=== PATIENT | female | born 1940 | race Caucasian/White ===

== ENCOUNTER → 2020-02-20 11:04 | Outpatient (CLI) | payer OTHER, SELFPAY ==
--- NOTE | ~2020-02-20 | MM_ITS ---
EXAMINATION: MM scrn allyson implant BI w nestor HISTORY: Screening mammogram, family history of breast cancer in her sister. TECHNIQUE: Craniocaudal and mediolateral oblique 3-D tomosynthesis images with implant displacement a nd synthetic 2-D images were generated. Craniocaudal and mediolateral oblique views of the breasts wi thout implant displacement were obtained using full field digital mammography. CAD analysis was submi tted and interpreted. COMPARISON: 08/31/2017, 08/12/1716, 07/21/2015 BREAST PARENCHYMAL COMPOSITION: The breasts are almost entirely fatty. FINDINGS: There is no evidence of suspicious mass, calcification, or architectural distortion to sugg est malignancy in either breast. There has been no suspicious interval change. IMPRESSION: 1. No mammographic evidence of malignancy. 2. Recommend routine screening mammography in one year. BI-RADS Category 1: Negative Reviewed, dictated and finalized at location B.
== END ==
PROVIDERS: PCP Student in an Organized Health Care Education/Training Program; Visit Provider Student in an Organized Health Care Education/Training Program
DX: Z12.31 Encounter for screening mammogram for malignant neoplasm of breast (principal)
CPT/HCPCS: 77063; 77067

== ENCOUNTER → 2020-05-20 08:06 | Outpatient (CLI) | payer OTHER, SELFPAY ==
--- NOTE | ~2020-05-20 | CT_ITS ---
EXAMINATION:CT chest wo con DATE: 05/20/2020 08:55 INDICATION: Chronic cough. Syndrome of inappropriate antidiuretic hormone. TECHNIQUE: Computed tomography (CT) of the chest was performed without intravenous contrast. Automate d exposure control and iterative reconstruction technique were employed. The dose-length product (DLP ) was 153.81 mGy-cm. COMPARISON: None. FINDINGS: There is mild atelectasis bilaterally. There is a 3 mm nodule in right upper lobe, likely b enign. There are trace pleural effusions. Cardiomegaly is noted. There are coronary artery calcificat ions. No pericardial effusion. There are bilateral breast implants. There is thoracic dextrocurvature and moderate spondylosis. There is a hemangioma in T4 vertebral body. IMPRESSION: 1. Cardiomegaly. Reviewed, dictated and finalized at location A. IMPRESSION: 1. Cardiomegaly.
--- NOTE | ~2020-05-20 | CT_ITS ---
EXAMINATION: CT soft tissue neck w con DATE: 05/20/2020 08:56 INDICATION: Syndrome of inappropriate diuretic hormone. Hyperparathyroidism. TECHNIQUE: Computed tomography (CT) of the neck was performed with 75 mL Omnipaque-350 intravenous co ntrast. Automated exposure control and iterative reconstruction technique were employed. The dose-trina gth product was 375.03 mGy-cm. COMPARISON: None FINDINGS: There are likely changes of ocular lens replacement surgeries. There are no pathologically enlarged lymph nodes. There is a 10 x 5 x 4 mm hyperenhancing mass posterior to inferior left thyroid lobe. A chin implant is noted. There is severe cervical spondylosis. IMPRESSION: 1. 10 mm hyperenhancing mass posterior to inferior left thyroid lobe, consistent with a parathyroid a denoma. Reviewed, dictated and finalized at location A. IMPRESSION: 1. 10 mm hyperenhancing mass posterior to inferior left thyroid lobe, consisten t with a parathyroid adenoma.
[2020-05-20 08:41] LABS: Estimated Glomerular Filt Rate > 60
== END ==
PROVIDERS: Visit Provider Student in an Organized Health Care Education/Training Program
DX: E22.2 Syndrome of inappropriate secretion of antidiuretic hormone (principal); E83.52 Hypercalcemia; R05 Cough; E21.3 Hyperparathyroidism, unspecified; I51.7 Cardiomegaly; E07.89 Other specified disorders of thyroid
CPT/HCPCS: 70491; 71250; Q9967

== ENCOUNTER → 2021-02-22 10:35 | Outpatient (CLI) | payer OTHER, SELFPAY ==
--- NOTE | ~2021-02-22 | MM_ITS ---
EXAMINATION: MM scrn allyson implant BI w nestor HISTORY: Screening mammogram TECHNIQUE: Craniocaudal and mediolateral oblique 3-D tomosynthesis images with implant displacement a nd synthetic 2-D images were generated. Craniocaudal and mediolateral oblique views of the breasts wi thout implant displacement were obtained using full field digital mammography. CAD analysis was submi tted and interpreted. COMPARISON: Comparison to multiple prior studies sequentially, with oldest reviewed study dated 06/24. BREAST PARENCHYMAL COMPOSITION: There are scattered areas of fibroglandular density. FINDINGS: There is no evidence of suspicious mass, calcification, or architectural distortion to sugg est malignancy in either breast. There has been no suspicious interval change. IMPRESSION: 1. No mammographic evidence of malignancy. 2. Recommend routine screening mammography in one year. BI-RADS Category 1: Negative Reviewed, dictated and finalized at location A.
== END ==
PROVIDERS: PCP Student in an Organized Health Care Education/Training Program; Visit Provider Student in an Organized Health Care Education/Training Program
DX: Z12.31 Encounter for screening mammogram for malignant neoplasm of breast (principal)
CPT/HCPCS: 77063; 77067

== ENCOUNTER → 2021-09-23 11:16 | Outpatient (CLI) | payer OTHER, SELFPAY ==
--- NOTE | ~2021-09-23 | DEXA_ITS ---
Bone Density Report Name: BRIGETTE MCDANIEL Age: 81 Sex: Female Ethnicity: White Date of : 1940 Indication: osteopenia; hyperparathyroidism; parental hip fracture; hysterectomy; postmenopausal Referring Provider: Rosa Elena, Lam Study: Bone densitometry was performed. Exam Date: September 23, 2021 Accession number: [id number] Bone Density: Region BMD T-score Z-score Classification AP Spine (L1, L2, L3) 0.921 -0.9 1.7 Normal Femoral Neck (Left) 0.569 -2.5 -0.2 Osteoporosis Total Hip (Left) 0.749 -1.6 0.5 Osteopenia Femoral Neck (Right) 0.602 -2.2 0.1 Osteopenia Total Hip (Right) 0.768 -1.4 0.6 Osteopenia Total Hip Mean 0.759 -1.5 0.6 Osteopenia World Health Organization criteria for BMD impression classify patients as: Normal (T-score at or above -1.0), Osteopenia (T-score between -1.0 and -2.5), or Osteoporosis (T-score at or below -2.5). 10-year Fracture Risk: FRAX not reported because: Some T-score for Spine Total or Hip Total or Femoral Neck at or below -2.5 Previous Exams: Region Exam Age BMD T-score BMD Change BMD Change Date g/cm2 vs Baseline vs Previous AP Spine(L1, L2, L3) 09/23/2021 81 0.921 -0.9 0.154* 0.054* 08/23/2018 78 0.867 -1.4 0.100* 0.065* 08/19/2016 76 0.803 -2.0 0.036* 0.083* 07/28/2015 74 0.720 -2.7 -0.047* -0.038* 07/07/2014 73 0.759 -2.4 -0.009 0.012 09/13/2012 72 0.747 -2.5 -0.020 0.004 06/17/2009 68 0.743 -2.5 -0.024* -0.024* 02/18/2008 67 0.767 -2.3 Total Hip(Left) 09/23/2021 81 0.749 -1.6 -0.112* -0.036* 08/23/2018 78 0.785 -1.3 -0.076* 0.002 08/19/2016 76 0.782 -1.3 -0.078* 0.004 07/28/2015 74 0.778 -1.3 -0.082* -0.044* 07/07/2014 73 0.822 -1.0 -0.039* -0.026 09/13/2012 72 0.848 -0.8 -0.012 0.003 06/17/2009 68 0.845 -0.8 -0.015 -0.015 02/18/2008 67 0.861 -0.7 Total Hip(Right) 09/23/2021 81 0.768 -1.4 -0.056* 0.004 08/23/2018 78 0.765 -1.5 -0.059* -0.004 08/19/2016 76 0.769 -1.4 -0.055* 0.016 07/28/2015 74 0.753 -1.5 -0.070* -0.040* 07/07/2014 73 0.794 -1.2 -0.030* -0.052* 09/13/2012 72 0.846 -0.8 0.022 0.008 06/17/2009 68 0.838 -0.9 0.014 0.014 02/18/2008 67 0.824 -1.0
== END ==
PROVIDERS: PCP Student in an Organized Health Care Education/Training Program; Visit Provider Student in an Organized Health Care Education/Training Program
DX: Z78.0 Asymptomatic menopausal state (principal); M81.0 Age-related osteoporosis without current pathological fracture; M85.89 Other specified disorders of bone density and structure, multiple sites
CPT/HCPCS: 77080

== ENCOUNTER 2021-11-29 07:52 | Outpatient (CLI) | payer OTHER, SELFPAY ==
--- NOTE | ~2021-11-29 | NM_ITS ---
EXAMINATION: NM parathyroid w imaging DATE: 11/29/2021 15:36 INDICATION: Hyperparathyroidism TECHNIQUE: 19.4 mCi Tc99m tetrofosmin (Myoview) was administered by intravenous route. Anterior image s of the neck were obtained at 10 minutes and 2 hours. COMPARISON: Neck CT dated 05/20/2020 FINDINGS/IMPRESSION: There is no focus of persistent activity in the area of the thyroid or mediastinum to suggest parathy roid adenoma. No correlate identified for the small enhancing paraesophageal nodule seen posterior to the lower pole of the left thyroid. Reviewed, dictated and finalized at location A.
== END 2021-11-29 07:53 | disposition home or self-care (01) ==
PROVIDERS: PCP Student in an Organized Health Care Education/Training Program; Visit Provider Otolaryngology
DX: E21.3 Hyperparathyroidism, unspecified (principal)
CPT/HCPCS: 78070; A9500

== ENCOUNTER 2021-12-22 12:39 | Outpatient (CLI) | payer OTHER, SELFPAY ==
--- NOTE | 2021-12-22 12:51 | ECG_ITS ---
Measurements Intervals [place] Rate: 60 P: 67 AK: 198 QRS: -5 QRSD: 94 T: 34 QT: 423 QTc: 424 Interpretive Statements SINUS RHYTHM VOLTAGE CRITERIA FOR LVH [MEETS CRITERIA IN ONE OF: R(aVL), S(V1), R(V5), R(V5/V6)+S(V1)] NONSPECIFIC T-WAVE ABNORMALITY BORDERLINE ECG COMPARED TO ECG 02/21/2019 15:40:08 NO SIGNIFICANT CHANGE Electronically Signed On 12-22-2021 13:47:39 CDT by Pal Fitch M.D.
[2021-12-22 13:32] LABS: Hematocrit 36.4 % (37.0-47.0); Hemoglobin 11.7 g/dL (12.0-15.0)
== END 2021-12-22 12:40 | disposition home or self-care (01) ==
LOC: ANHSURGERY 12:44
PROVIDERS: Anesthesiology; PCP Student in an Organized Health Care Education/Training Program; Visit Provider Otolaryngology
DX: Z01.818 Encounter for other preprocedural examination (principal); I10 Essential (primary) hypertension; D64.9 Anemia, unspecified
CPT/HCPCS: 36415; 85014; 85018; 93005

== ENCOUNTER 2021-12-27 00:46 | Day surgery (SDC) | payer OTHER, SELFPAY ==
[2021-12-15 10:22] VITALS: BMI 22.9
--- NOTE | 2021-12-15 10:32 | PC.NURSE ---
Report to the Outpatient Waiting Room, entrance under the green pavilion located off [facility], at time _0615_ on date _12/27/21_. OR Time: _0815_. - You and your visitor will be asked a series of questions to screen for COVID 19 for your protection. - Only one visitor is allowed at this time. - The patient visitor is requested to leave or wait in car when not with patient. - A mask is required within the hospital. Patients may have clear liquids (water, carbonated beverages, clear teas, apple juice) until 3 hours prior to surgery (0515 AM) with a maximum of 20 ounces. - No food from midnight until time of surgery Take the following medications with a SIP of water the morning of surgery: _AMLODIPINE, GABAPENTIN, TRAMADOL IF NEEDED_ Medications to discontinue __ASPIRIN PER DR. IZQUIERDO'S INSTRUCTIONS, ALL VITAMINS AND SUPPLEMENTS 3 DAYS PRIOR TO SURGERY PER ANESTHESIA, Date to take last dose 12/23/21_ Please no make-up, nail sammarinese, hairspray, perfume, deodorant, or body powder the day of surgery. No jewelry (including any body piercings) or valuables the day of surgery, leave them at home. Please take a shower or bath the night before, or the morning of, surgery with an antibacterial soap. Wear comfortable, loose fitting clothing. - Jewelry must be removed prior to entering the operating room. Rings and piercings that are not removed may be cut off. - The hospital will not accept responsibility for valuables. - Please leave all valuables, including medications, at home the day of surgery. If you are going home after surgery, a licensed driver service technician must drive you home. - NO public transportation without another adult. - We recommend that an adult stay with you for 24 hours following discharge. - We also recommend that you do not drive, make important decision, drink alcoholic beverages, or take any drugs that were not prescribed by your health care provider for at least 24 hours after your discharge time. Follow any additional instructions given to you from your surgeon. If you or anyone in your household have experienced Covid symptoms in the past week, please notify your surgeon or the nurse liaison at the phone number below for possible testing. Telephone instructions given to ___PT and asked if any additional questions and then verbalized understanding. Patient advised to call surgeon office or pre surgery nurse liaison [phone] if any additional questions.
[2021-12-27] VITALS (8 sets, daily range): BP systolic 118–141; BP diastolic 51–73; PULSE 59–77; RESP 14–20; TEMP 36.7–36.8; O2SAT 91–100
--- NOTE | 2021-12-27 07:32 | WPDANESEPPF ---
Anes - Initial Pre Proc Eval Procedure: Operation Date: 12/27/21 08:30 Proposed Procedures p Left Parathyroidectomy - Romel Taylor MD Date/Time: 12/27/21 07:32 Surgeon: Romel Taylor MD Pre Op Diagnosis: Hyperparathyroidism Patient Data Age: 81 Gender: F Height: 1.66 m Weight: 62.1 kg Allergies Allergy/AdvReac Type Severity Reaction Status Date / Time sulfamethoxazole AdvReac Mild Nausea Verified 12/27/21 07:30 [From Sulfamethoxazole-Trimethoprim] trimethoprim AdvReac Mild Nausea Verified 12/27/21 07:30 [From Sulfamethoxazole-Trimethoprim] Home Medications Medication Instructions Recorded Confirmed Type cholecalciferol (vitamin D3) 25 1,000 unit PO QAM 06/27/19 12/15/21 History mcg (1,000 unit) capsule gabapentin 300 mg capsule 300 mg PO TID 06/27/19 12/15/21 History iron 18 mg tablet 18 mg PO QAM 06/27/19 12/15/21 History multivitamin 1 cap PO QAM 06/27/19 12/15/21 History zolpidem 10 mg tablet 10 mg PO .at bedtime PRN sleep #30 11/18/19 12/15/21 Rx tabs tramadol 50 mg tablet 50 mg PO Q6H PRN Pain 06/01/20 12/15/21 History risedronate 150 mg tablet See Rx Instructions .Route 04/30/21 12/15/21 Rx .COMPLEX #1 tablet Probiotic 1 cap QAM 12/15/21 12/15/21 History amlodipine 5 mg tablet 5 mg PO QAM 12/15/21 12/15/21 History aspirin 81 mg tablet,delayed 81 mg PO DAILY 12/15/21 12/15/21 History release flaxseed 1,000 mg capsule 1,000 mg PO QAM 12/15/21 12/15/21 History rosuvastatin 5 mg tablet 1 tablet HS 12/15/21 12/15/21 History vitamin B complex 1 cap PO QAM 12/15/21 12/15/21 History vitamin E 1 cap QAM 12/15/21 12/15/21 History Patient hx anesthesia problems: post op nausea/vomiting Family hx anesthesia problems: none Results Review: All pre-operative results and documents have been reviewed as part of the pre-operative evaluation. [facility] Past Medical History Medical History Age-related osteoporosis without current pathological fracture Anemia Arthritis Back pain Essential (primary) hypertension H/O: HTN (hypertension) Hyperlipidemia Insomnia Peripheral vascular disease, asymptomatic Personal history of skin cancer Sinus drainage Sleep apnea in adult Spinal stenosis of lumbar region with neurogenic claudication Surgical History Surgical History H/O: hysterectomy History of left cataract surgery Family History Family History Mother Hypertension Family history of elevated blood lipids Family history of diabetes mellitus in first degree relative, Onset Age: 87 Patient's mother is Cerebrovascular accident Father Malignant neoplasm of prostate, Onset Age: 77 Patient's father is Family history of heart disease in male family member before age 55 Sibling Family history of malignant neoplasm of breast in first degree relative Other Anxiety Bladder cancer CHF (congestive heart failure), NYHA class I Family history of malignant neoplasm Family history of thyroid disease Heart attack Heart disease Social History Social History Smoking status: Never smoker Second hand tobacco smoke exposure: No Alcohol intake: never Substance use: never Substance use type: does not use Living arrangements: with family Additional living arrangements comments: PT GRANDSON LIVES WITH PT Spiritual care concerns: No Anes - Eval Final PreProcedure Day of Procedure 12/27/21 07:32 Patient weight: normal Heart: regular rate and rhythm Lungs: clear to auscultation Airway: Mallampati scale class 1 Neurological: alert and oriented Last oral intake: >/= 8 hours ASA classification: III Emergent: no Anesthetic plan: proceed Anesthesia type and monitoring: general ETT and standard monitoring
[2021-12-27] MEDS: ACETAMINOPHEN 500 MG TABLET 1000 MG PO (07:47)
[2021-12-27] MEDS: LACTATED RINGERS 1,000 ML 30 ML IV CONT ×2 (07:48→09:40)
--- NOTE | 2021-12-27 08:00 | WPDHPUPDATE1 ---
History and Physical Update Update Date/Time: 12/27/21 08:00 History and Physical has been reviewed, including an updated exam of the patient. There are NO changes in the patient's condition. Risks, benefits, and alternatives have been discussed and questions answered. Patient agrees to proceed with procedure.
[2021-12-27 08:11] LABS: Parathyroid Intact 181.9 pg/mL (7.5-53.5)
[2021-12-27] MEDS: ceFAZolin 2 GM/D5W 50 ML 2 GM/50 ML BAG IVPB (08:15)
[2021-12-27] MEDS: LIDO 1%/EPINEPHRINE/PF 1:200,000 30 ML VIAL 10 ML XX (08:53)
--- NOTE | 2021-12-27 09:30 | W.PM.PROC2 ---
Procedure Note - Detailed Date of Procedure 12/27/21 Pre-op Diagnosis Hyperparathyroidism Post-op Diagnosis Same Procedure Performed Left inferior parathyroidectomy Surgeon Romel Taylor MD Anesthesia General Indications Primary hyperparathyroidism Findings Left inferior thyroid nodule removed, did not appear to be the adenoma. Further dissection revealed more obvious left inferior adenoma which was removed. First set of labs drawn during surgery before the true adenoma was removed, second set of labs drawn after closure, after the true adenoma removed. Description of Procedure On the date of procedure the patient was met in the preoperative area and risk and benefits of the procedure reviewed with the patient who elected to proceed. The patient was brought back to her room by the anesthesia team and underwent general endotracheal anesthesia. Once an adequate plane of anesthesia was obtained a timeout was performed to assure the patient identification the patient here to be performed were correct. Preop PTH was 148. Ca was 10.7. The patient's neck landmarks were marked and the proposed incision in a natural crease approximately was injected with 1% lidocaine with 100,000 epinephrine. The patient was then prepped and draped in the normal fashion for a parathyroidectomy. Preoperative imaging indicated an adenoma at the left inferior parathyroid gland. The patient had a shoulder roll placed. A 2 cm incision was made approximately two fingerbreadths above the sternal notch in a skin crease. The incision was carried through subcutaneous tissue to the subcutaneous fat. Electrocautery was used down to the platysma. The platysma was incised. The strap muscles were identified and at the midline through the raphae. The left thyroid was identified and strap muscles lifted off the lobe. The left thyroid lobe was retracted medially and blunt dissection was carried out to free the thyroid from the surrounding fascia. The inferior and superior pole of the right thyroid was identified. A thyroid nodule was identified and sampled but it became clear this was not the adenoma. The recurrent nerve was identified and dissection was performed along the nerve, with careful inspection along the tracheoesophageal groove. The adenoma was then visualized and identified deep to the nerve and was carefully dissected free from surrounding fascia without injury to the nerve. It was very clearly the tissue noted on preoperative imaging. The gland was fully removed. 15 minutes after removal, intraoperative PTH was drawn. The strap muscles were closed down the midline with a running 3-0 Vicryl. The platysma was closed with 3-0 Vicryl. The deep dermal sutures were placed using 4-0 Monocryl. The skin was closed with 4-0 Monocryl running subcuticular. The incision was dressed with Exofin glue. The care the patient was transferred back to the anesthesia team and the patient was awoke in the operating room and transferred back to the PACU in stable condition. Romel Taylor M.D. Estimated Blood Loss 5 Drains No Packing No Pathology Yes (1. Left thyroid nodule. 2. Left inferior parathyroid gland) Complications No immediate complications Condition Stable Disposition PACU
[2021-12-27 09:53] LABS: Parathyroid Intact 214.4 pg/mL (7.5-53.5)
--- NOTE | 2021-12-27 10:03 | SUR.PHASEI ---
1001: simple mask removed.
[2021-12-27 11:12] LABS: Parathyroid Intact 15.9 pg/mL (7.5-53.5)
== END 2021-12-27 11:25 | disposition home or self-care (01) ==
PROVIDERS: PCP Student in an Organized Health Care Education/Training Program; Visit Provider Otolaryngology
PROC: (CPT 60500; principal; 2021-12-27 08:30)
DX: D35.1 Benign neoplasm of parathyroid gland (principal); D64.9 Anemia, unspecified; M81.0 Age-related osteoporosis without current pathological fracture; G47.30 Sleep apnea, unspecified; I10 Essential (primary) hypertension; E78.5 Hyperlipidemia, unspecified; G47.00 Insomnia, unspecified; Z79.82 Long term (current) use of aspirin
CPT/HCPCS: 60500; 36415; 83970; 85014; 85018; 88305; 93005; A9270; J0330; J0690; J1100; J2405; J2704; J3010; J7120

== ENCOUNTER → 2022-05-26 13:26 | Outpatient (CLI) | payer OTHER, SELFPAY ==
--- NOTE | ~2022-05-26 | MM_ITS ---
EXAMINATION: MM scrn allyson implant BI w nestor HISTORY: Screening mammogram TECHNIQUE: Craniocaudal and mediolateral oblique 3-D tomosynthesis images with implant displacement a nd synthetic 2-D images were generated. Craniocaudal and mediolateral oblique views of the breasts wi thout implant displacement were obtained using full field digital mammography. CAD analysis was submi tted and interpreted. COMPARISON: Comparison to multiple prior studies sequentially, with oldest reviewed study dated 06/24. BREAST PARENCHYMAL COMPOSITION: There are scattered areas of fibroglandular density. FINDINGS: There are bilateral subglandular silicone implants. There is no evidence of suspicious mass , calcification, or architectural distortion to suggest malignancy in either breast. There has been n o suspicious interval change. IMPRESSION: 1. No mammographic evidence of malignancy. 2. Recommend routine screening mammography in one year. BI-RADS Category 1: Negative Reviewed, dictated and finalized at location A.
== END ==
PROVIDERS: PCP Student in an Organized Health Care Education/Training Program; Visit Provider Student in an Organized Health Care Education/Training Program
DX: Z12.31 Encounter for screening mammogram for malignant neoplasm of breast (principal)
CPT/HCPCS: 77063; 77067

== ENCOUNTER 2022-10-19 10:40 | Outpatient (CLI) | payer OTHER, SELFPAY ==
--- NOTE | ~2022-10-19 | XR_ITS ---
Supine and upright views of the abdomen Clinical history: Abdominal distention Findings: Bowel gas pattern is nonspecific. Moderate to large amount of stool present. No evidence fo r obstruction or free air. No abnormal mass lesion or calcification is seen. Lower lumbar spinal fixa tion hardware present. Impression: Moderate to large stool. Correlate for constipation. Reviewed, dictated and finalized at [facility]. Impression: Moderate to large stool. Correlate for constipation.
[2022-10-19 11:03] LABS: Appearance Urine Clear (Clear); Bacteria Urine None Seen /hpf; Bilirubin Urine Negative (Negative); Blood Urine Negative (Negative); Color Urine Yellow (Yellow); Glucose Urine UA Negative (Negative); Ketones Urine Negative (Negative); Leukocyte Esterase Ur Negative LEU/UL (Negative); Nitrate Urine Negative (Negative); Non Pathogenic Casts 0-2; Protein Urine Trace mg/dL (Negative); RBC Urine 0-2 /hpf (0-2); Specific Grav Ur 1.023 (1.001-1.035); Squamous Epithelial Cell Urine None seen /hpf (Few); WBC Urine 0-5 /hpf; pH Urine 6.5 (5.0-9.0)
[2022-10-19 11:08] LABS: Add Urine Microscopic? YES
== END 2022-10-19 10:41 | disposition home or self-care (01) ==
LOC: ANHLAB 10:43
PROVIDERS: PCP Student in an Organized Health Care Education/Training Program; Visit Provider Nurse Practitioner
DX: R14.0 Abdominal distension (gaseous) (principal); R82.90 Unspecified abnormal findings in urine; R15.1 Fecal smearing
CPT/HCPCS: 74018; 81001

== ENCOUNTER → 2023-05-29 10:01 | Outpatient (CLI) | payer OTHER, SELFPAY ==
--- NOTE | ~2023-05-29 | MM_ITS ---
EXAMINATION: MM scrn allyson implant BI w nestor HISTORY: Screening mammogram TECHNIQUE: Craniocaudal and mediolateral oblique 3-D tomosynthesis images with implant displacement a nd synthetic 2-D images were generated. Craniocaudal and mediolateral oblique views of the breasts wi thout implant displacement were obtained using full field digital mammography. CAD analysis was submi tted and interpreted. COMPARISON: No prior mammogram is available for comparison at this institution. BREAST PARENCHYMAL COMPOSITION: There are scattered areas of fibroglandular density. FINDINGS: There is no evidence of suspicious mass, calcification, or architectural distortion to sugg est malignancy in either breast. There has been no suspicious interval change. IMPRESSION: 1. No mammographic evidence of malignancy. 2. Recommend routine screening mammography in one year. BI-RADS Category 1: Negative Reviewed, dictated and finalized at location A. [employer] AND ACQUISITIONS CONSULTANT
== END ==
PROVIDERS: PCP Student in an Organized Health Care Education/Training Program; Visit Provider Student in an Organized Health Care Education/Training Program
DX: Z12.31 Encounter for screening mammogram for malignant neoplasm of breast (principal)
CPT/HCPCS: 77063; 77067

== ENCOUNTER 2024-01-30 05:11 | Emergency (ER) | payer OTHER, SELFPAY ==
--- NOTE | ~2024-01-30 | CT_ITS ---
CT of the Abdomen and Pelvis: Indication: Abdominal pain Technique: 2.5 mm axial scans were obtained through the abdomen and pelvis following intravenous adm inistration of 100 cc of Omnipaque 350. Dose reduction technique was used on this scan by utilizing a utomated exposure control and iterative reconstruction technique. The dose-length product (DLP) was 3 04.04 mGy-cm. Findings: Scans through the lung bases demonstrate mild left basilar atelectatic change. The liver, spleen, pancreas, gallbladder, adrenals and kidneys are within normal limits. No evidence of aortic aneurysm. No lymphadenopathy. No bowel obstruction or bowel wall thickening. There is no evidence to suggest acute appendicitis. Images through the pelvis were performed. Urinary bladder unremarkable. No pelvic mass seen. No ascit es. Impression: No significant abnormalities seen. Reviewed, dictated and finalized at [facility]. Impression: No significant abnormalities seen.
[2024-01-30 05:22] VITALS: BP 160/65; PULSE 66; RESP 14; TEMP 37.1; O2SAT 96
[2024-01-30 05:45] LABS: Basophils Absolute Auto 0.1 K/mm3 (0.0-0.1); Basophils Percent Auto 0.8 % (0.2-1.2); Eosinophils Absolute Auto 0.2 K/mm3 (0-0.3); Eosinophils Percent Auto 2.4 % (0-4.4); Hematocrit 36.4 % (37.0-47.0); Hemoglobin 12.6 g/dL (12.0-15.0); Immature Granulocyte Absolute 0.02 K/mm3 (0.00-0.031); Immature Granulocyte Percent A 0.3 % (0-0.5); Lymphocytes Absolute Auto 1.27 K/mm3 (0.9-3.2); Lymphocytes Percent Auto 19.9 % (18.3-44.2); Mean Corpuscular HGB Conc 34.6 g/dl (32-36); Mean Corpuscular Hemoglobin 30.7 pg (26-34); Mean Corpuscular Volume 88.8 fl (80-100); Mean Platelet Volume 9.1 fl (7.4-10.4); Monocytes Absolute Auto 0.6 K/mm3 (0.1-0.6); Monocytes Percent Auto 8.8 % (2.6-8.5); Neutrophils Absolute Auto 4.3 K/mm3 (1.3-6.7); Neutrophils Percent Auto 67.8 % (45.5-73.1); Platelet Count Result 386 k/mm3 (150-375); Red Cell Distribution Width 12.9 % (11.5-14.5); White Blood Count 6.4 K/mm3 (4.5-10.0)
[2024-01-30 05:56] LABS: Alanine Aminotransferase 19 U/L (6-35); Albumin Level 4.4 g/dL (3.5-5.1); Alkaline Phosphatase 38 U/L (38-126); Anion Gap 9 mmol/L (4-12); Aspartate Amino Transferase 32 U/L (14-36); Bilirubin,Total 0.5 mg/dL (0.2-1.3); Blood Urea Nitrogen 15 mg/dL (7-17); Calcium 8.9 mg/dL (8.4-10.2); Carbon Dioxide 26 mmol/L (22-30); Chloride 94 mmol/L (98-107); Estimated CRCL calculation 53 ml/min; Estimated Glomerular Filt Rate > 60; Glucose 106 mg/dL (65-110); Lipase 229 U/L (23-300); Sodium 129 mmol/L (137-145)
[2024-01-30 05:56] LABS: Lactic Acid Reflex 1.6 mmol/L (0.7-2.0)
[2024-01-30 06:03] LABS: Appearance Urine Cloudy (Clear); Bacteria Urine None Seen /hpf; Bilirubin Urine Negative (Negative); Blood Urine Negative (Negative); Color Urine Yellow (Yellow); Glucose Urine UA Negative (Negative); Ketones Urine Negative (Negative); Leukocyte Esterase Ur Negative LEU/UL (Negative); Nitrate Urine Negative (Negative); Non Pathogenic Casts 0-2; Protein Urine Negative (Negative); RBC Urine 0-2 /hpf (0-2); Specific Grav Ur 1.008 (1.001-1.035); Squamous Epithelial Cell Urine None Seen /hpf (Few); WBC Urine 0-5 /hpf (0-3)
[2024-01-30 06:04] LABS: Add Urine Microscopic? YES
--- NOTE | 2024-01-30 06:19 | ED.ABDPAIN ---
HPI - Abdominal Pain General Chief Complaint: Abdominal Pain Stated Complaint: burning in stomach Time Seen by Provider: 01/30/24 05:22 History of Present Illness HPI narrative: Patient is an 83-year-old female who presents to the emergency department this morning complaining of lower abdominal pain for the past 2 weeks. Patient states that within the past week she noticed that the pain is getting worse. She describes as a burning sensation, denies any urinary symptoms including dysuria or hematuria. Patient also admits that she feels as though she is constipated and states that she did have a bowel movement yesterday but it was smaller than her normal bowel movements and she feels as though she is backed up and unsure if that is causing her pain. Patient has an ice pack on her abdomen which she states is helping her pain. She denies any additional symptoms or concerns at this time. Denies any nausea or vomiting. Related Data Home Medications Medication Instructions Recorded Confirmed cholecalciferol (vitamin D3) 25 1,000 unit PO QAM 06/27/19 10/19/22 mcg (1,000 unit) capsule gabapentin 300 mg capsule 300 mg PO TID 06/27/19 10/19/22 iron 18 mg tablet 18 mg PO QAM 06/27/19 10/19/22 multivitamin 1 cap PO QAM 06/27/19 10/19/22 tramadol 50 mg tablet 50 mg PO Q6H PRN Pain 06/01/20 10/19/22 Probiotic 1 cap QAM 12/15/21 10/19/22 amlodipine 5 mg tablet 5 mg PO QAM 12/15/21 10/19/22 aspirin 81 mg tablet,delayed 81 mg PO DAILY 12/15/21 10/19/22 release flaxseed 1,000 mg capsule 1,000 mg PO QAM 12/15/21 10/19/22 rosuvastatin 5 mg tablet 1 tablet HS 12/15/21 10/19/22 vitamin B complex 1 cap PO QAM 12/15/21 10/19/22 vitamin E 1 cap QAM 12/15/21 10/19/22 Allergies Allergy/AdvReac Type Severity Reaction Status Date / Time sulfamethoxazole AdvReac Mild Nausea Verified 01/30/24 05:12 [From Sulfamethoxazole-Trimethoprim] trimethoprim AdvReac Mild Nausea Verified 01/30/24 05:12 [From Sulfamethoxazole-Trimethoprim] Review of Systems Review of Systems: All systems are reviewed and are negative unless stated otherwise in the HPI. [facility] Past Medical History Medical History Age-related osteoporosis without current pathological fracture Anemia Arthritis Back pain Bloating Colon cancer screening Essential (primary) hypertension Fecal smearing Foul smelling urine H/O: HTN (hypertension) Hyperlipidemia Insomnia Peripheral vascular disease, asymptomatic Personal history of skin cancer Sinus drainage Sleep apnea in adult Spinal stenosis of lumbar region with neurogenic claudication Surgical History Surgical History H/O: hysterectomy History of left cataract surgery Family History Family History Mother Hypertension Family history of elevated blood lipids Family history of diabetes mellitus in first degree relative, Onset Age: 87 Patient's mother is Cerebrovascular accident Father Malignant neoplasm of prostate, Onset Age: 77 Patient's father is Family history of heart disease in male family member before age 55 Sibling Family history of malignant neoplasm of breast in first degree relative Other Anxiety Bladder cancer CHF (congestive heart failure), NYHA class I Family history of malignant neoplasm Family history of thyroid disease Heart attack Heart disease Social History Social History Smoking status: Never smoker Second hand tobacco smoke exposure: No Alcohol intake: never Substance use: never Substance use type: does not use Living arrangements: with family Additional living arrangements comments: PT GRANDSON LIVES WITH PT Spiritual care concerns: No Exam Narrative: General: Alert, awake, afebrile, in no acut
[2024-01-30 06:24] VITALS: BP 131/66; PULSE 61; RESP 14; O2SAT 99
[2024-01-30] MEDS: SODIUM CHLORIDE 0.9% IV 1,000 ML 999 ML IV CONT (06:24)
[2024-01-30 07:13] VITALS: BP 154/54; PULSE 66; RESP 16; TEMP 36.6; O2SAT 100
== END 2024-01-30 07:24 | disposition home or self-care (01) ==
PROVIDERS: Emergency Provider Emergency Medicine; PCP Family Medicine
DX: R10.30 Lower abdominal pain, unspecified (principal); I10 Essential (primary) hypertension; E78.5 Hyperlipidemia, unspecified; I73.9 Peripheral vascular disease, unspecified; M19.90 Unspecified osteoarthritis, unspecified site; M81.0 Age-related osteoporosis without current pathological fracture; G47.30 Sleep apnea, unspecified; Z98.42 Cataract extraction status, left eye; Z85.828 Personal history of other malignant neoplasm of skin; Z90.710 Acquired absence of both cervix and uterus; Z79.899 Other long term (current) drug therapy; Z79.82 Long term (current) use of aspirin
CPT/HCPCS: 36415; 74177; 80053; 81001; 83605; 83690; 85025; 96360; 99284; J7030; Q9967

== ENCOUNTER 2024-03-14 01:14 | Day surgery (SDC) | payer OTHER, SELFPAY ==
[2024-02-29 13:34] VITALS: BMI 20.9
[2024-03-14 06:37] VITALS: BP 171/62; PULSE 72; RESP 18; TEMP 36.4; O2SAT 98
[2024-03-14] MEDS: LACTATED RINGERS 1,000 ML 150 ML IV CONT (06:44)
--- NOTE | 2024-03-14 07:32 | WPDHPUPDATE1 ---
History and Physical Update Update Date/Time: 03/14/24 07:32 History and Physical has been reviewed, including an updated exam of the patient. There are NO changes in the patient's condition. Risks, benefits, and alternatives have been discussed and questions answered. Patient agrees to proceed with procedure.
--- NOTE | 2024-03-14 07:44 | SUR.OPER ---
EGD [id number]. Colonoscopy start time 744.
--- NOTE | 2024-03-14 07:48 | WPDANESEPPF ---
Anes - Initial Pre Proc Eval Procedure: Operation Date: 03/14/24 07:30 Proposed Procedures p Esophagogastroduodenoscopy & Colonoscopy - Warner Reynolds MD Date/Time: 03/14/24 07:48 Surgeon: Warner Reynolds MD Pre Op Diagnosis: Constipation, skin & digestive disturbances Patient Data Age: 83 Gender: F Height: 1.68 m Weight: 56.4 kg Last Vital Signs Temp 97.6 F 03/14/24 06:37 Pulse 72 03/14/24 06:37 Resp 18 03/14/24 06:37 BP 171/62 H 03/14/24 06:37 Pulse Ox 98 03/14/24 06:37 O2 Del Method Room Air 03/14/24 06:37 Allergies Allergy/AdvReac Type Severity Reaction Status Date / Time sulfamethoxazole AdvReac Mild Nausea Verified 03/14/24 06:35 [From Sulfamethoxazole-Trimethoprim] trimethoprim AdvReac Mild Nausea Verified 03/14/24 06:35 [From Sulfamethoxazole-Trimethoprim] Home Medications Medication Instructions Recorded Confirmed Type cholecalciferol (vitamin D3) 25 1,000 unit PO QAM 06/27/19 02/29/24 History mcg (1,000 unit) capsule gabapentin 300 mg capsule 100 mg PO DAILY 06/27/19 02/29/24 History iron 18 mg tablet 18 mg PO QAM 06/27/19 03/14/24 History multivitamin 1 cap PO QAM 06/27/19 02/29/24 History tramadol 50 mg tablet 50 mg PO Q6H PRN Pain 06/01/20 02/29/24 History risedronate 150 mg tablet See Rx Instructions .Route 04/30/21 02/29/24 Rx .COMPLEX #1 tablet amlodipine 5 mg tablet 5 mg PO QAM 12/15/21 02/29/24 History aspirin 81 mg tablet,delayed 81 mg PO DAILY 12/15/21 02/29/24 History release flaxseed 1,000 mg capsule 1,000 mg PO QAM 12/15/21 02/29/24 History rosuvastatin 5 mg tablet 1 tablet PO HS 12/15/21 02/29/24 History vitamin B complex 1 cap PO QAM 12/15/21 02/29/24 History hydrocodone 5 mg-acetaminophen 325 1 tablet PO Q4H PRN pain #10 tabs 12/27/21 03/14/24 Rx mg tablet famotidine 20 mg tablet 20 mg PO BID 02/21/24 02/29/24 History omeprazole 40 mg capsule,delayed 40 mg PO BID 02/21/24 02/29/24 History release sertraline 50 mg tablet 50 mg PO DAILY 02/21/24 02/29/24 History zolpidem 10 mg tablet 10 mg PO .at bedtime PRN Insomnia 02/29/24 02/29/24 History Patient hx anesthesia problems: none Family hx anesthesia problems: none Results Review: All pre-operative results and documents have been reviewed as part of the pre-operative evaluation. [facility] Past Medical History Medical History Age-related osteoporosis without current pathological fracture Anemia Arthritis Back pain Bloating Colon cancer screening Essential (primary) hypertension Fecal smearing Foul smelling urine H/O: HTN (hypertension) Hyperlipidemia Insomnia Peripheral vascular disease, asymptomatic Personal history of skin cancer Sinus drainage Sleep apnea in adult Spinal stenosis of lumbar region with neurogenic claudication Surgical History Surgical History H/O: hysterectomy History of left cataract surgery Family History Family History Mother Hypertension Family history of elevated blood lipids Family history of diabetes mellitus in first degree relative, Onset Age: 87 Patient's mother is Cerebrovascular accident Father Malignant neoplasm of prostate, Onset Age: 77 Patient's father is Family history of heart disease in male family member before age 55 Sibling Family history of malignant neoplasm of breast in first degree relative Other Anxiety Bladder cancer CHF (congestive heart failure), NYHA class I Family history of malignant neoplasm Family history of thyroid disease Heart attack Heart disease Social History Social History Smoking status: Never smoker Second hand tobacco smoke exposure: No Alcohol intake: never Substance use: never Substance u
[2024-03-14 07:58] VITALS: BP 124/47; PULSE 59; RESP 20; O2SAT 100
[2024-03-14 08:08] VITALS: BP 135/47; PULSE 54; RESP 23; O2SAT 100
[2024-03-14 08:18] VITALS: BP 161/57; PULSE 55; RESP 23; O2SAT 100
== END 2024-03-14 08:31 | disposition home or self-care (01) ==
PROVIDERS: PCP Student in an Organized Health Care Education/Training Program; Referring Provider Nurse Practitioner; Visit Provider Internal Medicine Gastroenterology
PROC: 0DJ08ZZ Inspection of Upper Intestinal Tract, Via Natural or Artificial Opening Endoscopic (ICD-10-PCS; CPT 43235; principal; 2024-03-14 07:30)
DX: K64.8 Other hemorrhoids (principal); K21.9 Gastro-esophageal reflux disease without esophagitis; D64.9 Anemia, unspecified; I10 Essential (primary) hypertension; E78.5 Hyperlipidemia, unspecified; G47.00 Insomnia, unspecified; G47.30 Sleep apnea, unspecified; M48.062 Spinal stenosis, lumbar region with neurogenic claudication; K58.1 Irritable bowel syndrome with constipation; Z79.891 Long term (current) use of opiate analgesic; Z79.82 Long term (current) use of aspirin; Z98.890 Other specified postprocedural states; Z85.828 Personal history of other malignant neoplasm of skin; Z86.79 Personal history of other diseases of the circulatory system; Z80.42 Family history of malignant neoplasm of prostate; Z80.3 Family history of malignant neoplasm of breast; Z80.52 Family history of malignant neoplasm of bladder; Z82.49 Family history of ischemic heart disease and other diseases of the circulatory system
CPT/HCPCS: 43239; 45378; 88305; J2704; J7120

== ENCOUNTER 2024-04-01 11:57 | Outpatient (CLI) | payer OTHER, SELFPAY ==
--- NOTE | ~2024-04-01 | DEXA_ITS ---
Bone Density Report Name: BRIGETTE MCDANIEL Age: 83 Sex: Female Ethnicity: White Date of : 1940 Indication: postmenopausal; screening for osteoporosis; parental hip fracture; height loss; hysterectomy; Referring Provider: ELMER, MADDI Study: Bone densitometry was performed. Exam Date: April 01, 2024 Accession number: [id number] Bone Density: Region BMD T-score Z-score Classification Femoral Neck (Left) 0.547 -2.7 -0.3 Osteoporosis Total Hip (Left) 0.689 -2.1 0.1 Osteopenia Femoral Neck (Right) 0.614 -2.1 0.3 Osteopenia Total Hip (Right) 0.727 -1.8 0.4 Osteopenia Total Hip Mean 0.708 -2.0 0.3 Osteopenia World Health Organization criteria for BMD impression classify patients as: Normal (T-score at or above -1.0), Osteopenia (T-score between -1.0 and -2.5), or Osteoporosis (T-score at or below -2.5). 10-year Fracture Risk: FRAX not reported because: Some T-score for Spine Total or Hip Total or Femoral Neck at or below -2.5 Clinical Information Provided by Patient: Parent has had a hip fracture Has used the following medications: unsure Has the following medical conditions: Hysterectomy Patient maximum height was 66.0 Does not regularly consume dairy products Drinks caffeinated beverages Onset of menses at age 14 Number of children 2 Impression: The patient has osteoporosis, based on the Left Femoral Neck T-score. The patient has risk factors, including: parental hip fracture. Discussion: INCREASED RISK OF FRACTURE. BONE DENSITY IS UNDESIRABLY LOW AT ONE OR MORE SKELETAL SITES, CONSISTENT WITH POSTMENOPAUSAL OSTEOPOROSIS. This patient's lowest T-score meets the World Health Organization's (WHO) criteria for osteoporosis at one or more sites (T-score -2.5 or below). In untreated patients, the risk of osteoporotic fracture increases approximately two-fold for each 1.0 SD decrease in T-score. Low bone density is not the only risk factor for fracture; also consider factors such as patient's age, frailty or poor health, risk of falling, risk of injury, previous osteoporotic fracture, family history of osteoporosis, cigarette smoking, low body weight, etc. Not everyone with low bone mineral density has osteoporosis; osteomalacia and other metabolic bone disorders should also be considered. Patients who have osteoporosis should be evaluated for specific diseases and conditions (secondary causes) that may cause or contribute to bone loss. The [place] [employer] Endocrinologists (AACE) and National Osteoporosis Foundation (NOF) recommend pharmacologic intervention for all postmenopausal women whose T-score is in this range. The patient should follow a healthful lifestyle (good nutrition with adequate calcium and vitamin D, and appropriate weight-bearing exercise). Follow-Up: Consider a maykela
== END 2024-04-01 11:58 | disposition home or self-care (01) ==
LOC: ANHIMG 11:59
PROVIDERS: PCP Student in an Organized Health Care Education/Training Program; Visit Provider Student in an Organized Health Care Education/Training Program
DX: M81.0 Age-related osteoporosis without current pathological fracture (principal); M85.89 Other specified disorders of bone density and structure, multiple sites; Z78.0 Asymptomatic menopausal state; Z98.1 Arthrodesis status
CPT/HCPCS: 77080

== ENCOUNTER 2024-05-31 10:52 | Outpatient (CLI) | payer OTHER, SELFPAY ==
--- NOTE | 2024-05-31 11:04 | ECG_ITS ---
Test Date: 2024-05-31 11:09:36 Measurements Intervals Gravel Switch Rate: 61 P: 58 LA: 195 QRS: 10 QRSD: 97 T: 58 QT: 432 QTc: 438 Interpretive Statements SINUS RHYTHM LEFT VENTRICULAR HYPERTROPHY WITH ST-T CHANGE BORDERLINE ST-T WAVE ABNORMALITY- ANTERIOR LEADS BASELINE ARTIFACT- V5-V6 BORDERLINE ECG No previous ECG available for comparison Electronically Signed On 05-31-2024 11:12:21 [employer] by Dano Vigil D.O.
== END 2024-05-31 10:53 | disposition home or self-care (01) ==
PROVIDERS: PCP Student in an Organized Health Care Education/Training Program; Visit Provider Anesthesiology
DX: Z01.818 Encounter for other preprocedural examination (principal); R94.31 Abnormal electrocardiogram [ECG] [EKG]
CPT/HCPCS: 93005

== ENCOUNTER 2024-06-13 05:49 | Day surgery (SDC) | payer OTHER, SELFPAY ==
[2024-05-27 12:18] VITALS: BMI 22.0
[2024-06-13] VITALS (7 sets, daily range): BP systolic 114–159; BP diastolic 48–64; PULSE 66–75; RESP 12–20; TEMP 36.1–36.6; O2SAT 93–100; BMI 22.0
[2024-06-13] MEDS: LACTATED RINGERS 1,000 ML 30 ML IV CONT ×2 (06:45→08:34)
--- NOTE | 2024-06-13 06:57 | P.HP_ITS ---
History of Present Illness History of Present Illness Chief complaint: Complications of Internal Breast Prosthesis Narrative: Patient seen and examined in pre-operative holding area. No interval change in medical history or symptoms. Patient remembers previous discussion of benefits and alternatives to procedure. Continues to desire to proceed with bilateral breast implant and capsule removal. I reviewed the risks including but not limited to bleeding ,infection, asymmetry, undesireable cosmetic appea livia, partial/total skin/nipple loss, no change or worsening of symptoms, change in sensation, seroma. I discussed the possible use of assistants and their level of participation in the case. Patient stated understanding and signed the consent form wishing to proceed Review of Systems Review of Systems: All systems reviewed & are unremarkable except as noted in HPI and below PMFSH Past Medical History Medical History Age-related osteoporosis without current pathological fracture Anemia Arthritis Back pain Bloating Colon cancer screening Essential (primary) hypertension Fecal smearing Foul smelling urine H/O: HTN (hypertension) Hyperlipidemia Insomnia Peripheral vascular disease, asymptomatic Personal history of skin cancer Sinus drainage Sleep apnea in adult Spinal stenosis of lumbar region with neurogenic claudication Surgical History Surgical History H/O: hysterectomy History of left cataract surgery Family History Family History Mother Hypertension Family history of elevated blood lipids Family history of diabetes mellitus in first degree relative, Onset Age: 87 Patient's mother is Cerebrovascular accident Father Malignant neoplasm of prostate, Onset Age: 77 Patient's father is Family history of heart disease in male family member before age 55 Sibling Family history of malignant neoplasm of breast in first degree relative Other Anxiety Bladder cancer CHF (congestive heart failure), NYHA class I Family history of malignant neoplasm Family history of thyroid disease Heart attack Heart disease Social History Social History Smoking status: Never smoker Second hand tobacco smoke exposure: No Alcohol intake: never Substance use: never Substance use type: does not use Living arrangements: alone Additional living arrangements comments: PT GRANDSON LIVES WITH PT Spiritual care concerns: No Meds Home Medications and Allergies Home Medications Medication Instructions Recorded Confirmed Type cholecalciferol (vitamin D3) 25 1,000 unit PO QAM 06/27/19 06/13/24 History mcg (1,000 unit) capsule gabapentin 300 mg capsule 100 mg PO DAILY 06/27/19 06/13/24 History iron 18 mg tablet 18 mg PO QAM 06/27/19 06/13/24 History multivitamin 1 cap PO QAM 06/27/19 06/13/24 History tramadol 50 mg tablet 50 mg PO Q6H PRN Pain 06/01/20 06/13/24 History amlodipine 5 mg tablet 5 mg PO QAM 12/15/21 06/13/24 History aspirin 81 mg tablet,delayed 81 mg PO DAILY 12/15/21 06/13/24 History release flaxseed 1,000 mg capsule 1,000 mg PO QAM 12/15/21 06/13/24 History rosuvastatin 5 mg tablet 1 tablet PO HS 12/15/21 06/13/24 History vitamin B complex 1 cap PO QAM 12/15/21 06/13/24 History sertraline 50 mg tablet 50 mg PO DAILY 02/21/24 06/13/24 History zolpidem 10 mg tablet 12.5 mg PO .at bedtime PRN Insomnia 02/29/24 06/13/24 History linaclotide 72 mcg capsule 72 mcg Capsule#4 Samples 05/09/24 06/13/24 Sample (Linzess) Allergies Allergy/AdvReac Type Severity Reaction Status Date / Time sulfamethoxazole AdvReac Mild Nausea Verified 06/13/24 06:18 [From Sulfamethoxazole-Trimethoprim] trimethoprim AdvReac Mild Nausea Verified 06/13/24 06:18 [From Sulfamethoxazole-Trimethoprim] Vital Signs Vital Signs - 24 hr 06/13/24 06:29 Temperature 36.6 C Pulse Rate 66 Respiratory Rate 18 Blood Pressure 159/64 H Pulse Oximetry 98 Oxygen Delivery Room Air Exam Narrative: unchnaged Assessment and Plan Assessment and plan (1) Complication of internal breast prosthesis: Qualifiers: Encounter type: initial encounter Qualified Code(s): T85.49XA - Other mechanical complication of breast prosthesis and implant, initial encounter Code(s): T85.49XA - Other mechanical complication of breast prosthesis and implant, initial encounter Status: Acute (2) Breast implant status: Code(s): Z98.82 - Breast implant status Status: Acute Plan cont as above
--- NOTE | 2024-06-13 06:58 | P.OP_ITS ---
Procedure Note - Detailed Date of Procedure 06/13/24 Pre-op Diagnosis Complications of Internal Breast Prosthesis Post-op Diagnosis Same Procedure Performed b/l breast implant removal and capsulectomy Surgeon Rachana Castorena MD Saw Boss angeline davis pa-c Anesthesia General Description of Procedure Patient was seen in the preoperative holding area where the breasts were marked and the consent form was signed. She was taken back to the operating room and placed on the table in the supine position. Time-out was performed with Anesthesia, surgeon, and staff agreeing on patient's name, site, and surgery to be performed. SCDs were placed on the lower extremities and inflated. Antibiotics were given IV. After general anesthesia was administered the breasts were prepped and draped in usual sterile fashion. I took my attention to the right breast where I proceeded with making an elliptical incision around her previous inferior pole scar through skin and dermis with a 15 blade scalpel Bovie cautery was used to dissect through subcutaneous and breast tissue until I reached the breast capsule. I proceeded with dissection around the breast capsule with Bovie cautery. I was able to achieve EN bloc resection of the right breast implant and capsule. I irrigated with normal saline. A 10 Palestinian ZAY drain was placed in the right breast cavity. Hemostasis was obtained with Bovie cautery. excess skin was excised from both ends of incision to reduce dog ears and improve closure. 3-0 Vicryl was used for deep and dermal closure. 4-0 Monocryl was used for subcuticular closure. The drain was hooked to bulb suction. The nipple and skin flaps appeared viable. length of closue was 6cm I took my attention to the left breast where the same procedure was performed. An elliptical incision was made around her previous inferior pole scar through skin and dermis with a 15 blade scalpel. Bovie cautery was used to dissect through subcutaneous tissue down to the breast capsule. I proceeded with EN bloc resection of the left breast implant and capsule with Bovie cautery. Irrigated with normal saline. Hemostasis was obtained with Bovie cautery. A 10 Palestinian ZAY drain was placed in the left breast pocket. excess skin was excised from both ends of incision to reduce dog ears and improve closure. Deep and dermal tissue was closed with 3-0 Vicryl suture. 4-0 Monocryl was used for subcuticular closure. The drain was hooked to bulb suction. The nipple and skin flaps appeared viable with good cap refill. length of closure 5cm I injected 20 cc 1%lido with epi and 0.5%marcaine plain aroud incision and anterior axillary line of each breast. A dressing of Mastisol, Steri-Strips, 4 x 4, Tegaderm, ABDs and a breast binder was then applied. The patient was awakened from anesthesia and transferred to the recovery room in stable condition. Complications: None estimated blood loss: 20 cc disposition: Patient tolerated the procedure well and will be going home later today. Angeline Davis PA-C was essential for positioning, retraction, dissection, closure and dressing placement [facility] Billing Surgery - Charge Forward: Surgery Billing ([id number] same for angeline mota )
--- NOTE | 2024-06-13 07:12 | P.PNAN_ITS ---
Anes - Initial Pre Proc Eval Procedure: Operation Date: 06/13/24 07:30 Proposed Procedures p Bilateral Breast Implant Removal with Capsulotomy - Rachana Castorena MD Date/Time: 06/13/24 07:12 Surgeon: Rachana Castorena MD Pre Op Diagnosis: Complications of Internal Breast Prosthesis Patient Data Age: 83 Gender: F Height: 1.65 m Weight: 60 kg Last Vital Signs Temp 36.6 C 06/13/24 06:29 Pulse 66 06/13/24 06:29 Resp 18 06/13/24 06:29 BP 159/64 H 06/13/24 06:29 Pulse Ox 98 06/13/24 06:29 O2 Del Method Room Air 06/13/24 06:29 Allergies Allergy/AdvReac Type Severity Reaction Status Date / Time sulfamethoxazole AdvReac Mild Nausea Verified 06/13/24 06:18 [From Sulfamethoxazole-Trimethoprim] trimethoprim AdvReac Mild Nausea Verified 06/13/24 06:18 [From Sulfamethoxazole-Trimethoprim] Home Medications Medication Instructions Recorded Confirmed Type cholecalciferol (vitamin D3) 25 1,000 unit PO QAM 06/27/19 06/13/24 History mcg (1,000 unit) capsule gabapentin 300 mg capsule 100 mg PO DAILY 06/27/19 06/13/24 History iron 18 mg tablet 18 mg PO QAM 06/27/19 06/13/24 History multivitamin 1 cap PO QAM 06/27/19 06/13/24 History tramadol 50 mg tablet 50 mg PO Q6H PRN Pain 06/01/20 06/13/24 History amlodipine 5 mg tablet 5 mg PO QAM 12/15/21 06/13/24 History aspirin 81 mg tablet,delayed 81 mg PO DAILY 12/15/21 06/13/24 History release flaxseed 1,000 mg capsule 1,000 mg PO QAM 12/15/21 06/13/24 History rosuvastatin 5 mg tablet 1 tablet PO HS 12/15/21 06/13/24 History vitamin B complex 1 cap PO QAM 12/15/21 06/13/24 History sertraline 50 mg tablet 50 mg PO DAILY 02/21/24 06/13/24 History zolpidem 10 mg tablet 12.5 mg PO .at bedtime PRN Insomnia 02/29/24 06/13/24 History linaclotide 72 mcg capsule 72 mcg Capsule#4 Samples 05/09/24 06/13/24 Sample (Bassam) Patient hx anesthesia problems: none Family hx anesthesia problems: none Results Review: All pre-operative results and documents have been reviewed as part of the pre- operative evaluation. [facility] Past Medical History Medical History Age-related osteoporosis without current pathological fracture Anemia Arthritis Back pain Bloating Colon cancer screening Essential (primary) hypertension Fecal smearing Foul smelling urine H/O: HTN (hypertension) Hyperlipidemia Insomnia Peripheral vascular disease, asymptomatic Personal history of skin cancer Sinus drainage Sleep apnea in adult Spinal stenosis of lumbar region with neurogenic claudication Surgical History Surgical History H/O: hysterectomy History of left cataract surgery Family History Family History Mother Hypertension Family history of elevated blood lipids Family history of diabetes mellitus in first degree relative, Onset Age: 87 Patient's mother is Cerebrovascular accident Father Malignant neoplasm of prostate, Onset Age: 77 Patient's father is Family history of heart disease in male family member before age 55 Sibling Family history of malignant neoplasm of breast in first degree relative Other Anxiety Bladder cancer CHF (congestive heart failure), NYHA class I Family history of malignant neoplasm Family history of thyroid disease Heart attack Heart disease Social History Social History Smoking status: Never smoker Second hand tobacco smoke exposure: No Alcohol intake: never Substance use: never Substance use type: does not use Living arrangements: alone Additional living arrangements comments: PT GRANDSON LIVES WITH PT Spiritual care concerns: No Anes - Eval Final PreProcedure Day of Procedure 06/13/24 07:12 Patient weight: normal Heart: regular rate and rhythm Lungs: clear to auscultation Airway: Mallampati scale class II Neurological: alert and oriented Last oral intake: >/= 8 hours ASA classification: III Emergent: no Anesthetic plan: proceed Anesthesia type and monitoring: general LMA and standard monitoring Results Review: All pre-operative results and documents have been reviewed as part of the pre- operative evaluation. Informed Consent: The patient's anesthetic plan and its attendant risks and benefits were discussed with the patient/family/POA. Questions were solicited and answers provided to the satisfaction of the patient/family/POA.
--- NOTE | 2024-06-13 07:17 | SUR.PREOP ---
DR BORGES MARKED PT
[2024-06-13] MEDS: ceFAZolin SODIUM 2 GM/20 ML SW SYRINGE IV PUSH (07:25)
[2024-06-13] MEDS: LIDO 1%/EPINEPHRINE 1:100,000 10 ML VIAL 20 ML INFILTRATE (08:15)
[2024-06-13] MEDS: BUPivacaine HCL 0.5% PF 30 ML VIAL 20 ML INFILTRATE (08:15)
--- NOTE | 2024-06-13 10:24 | WPDANESPN ---
Anes - Prog Note Post-Op Date/Time: 06/13/24 10:24 Cardiovascular status: normal Respiratory status: normal Airway patency: baseline Mental status: baseline Post-Op hydration status: normal Vital Signs: Last Vital Signs Temp 36.1 C L 06/13/24 08:34 Pulse 68 06/13/24 09:50 Resp 18 06/13/24 09:50 BP 114/48 L 06/13/24 09:50 Pulse Ox 100 06/13/24 09:50 O2 Del Method Room Air 06/13/24 09:50 O2 Flow Rate 6 06/13/24 08:34 Pain Score (VAS): 08/02 I/O: Intake & Output 06/12/24 06/13/24 06/13/24 23:59 07:59 15:59 Intake Total 0 Balance 0 Post-procedural complaints: none Patient Feedback: Patient satisfied with anesthetic care.
== END 2024-06-13 09:54 | disposition home or self-care (01) ==
PROVIDERS: PCP Student in an Organized Health Care Education/Training Program; Visit Provider Plastic Surgery
PROC: 0HPT0JZ Removal of Synthetic Substitute from Right Breast, Open Approach (ICD-10-PCS; CPT 19371; principal; 2024-06-13 07:30)
DX: T85.41XA Breakdown (mechanical) of breast prosthesis and implant, initial encounter (principal)
CPT/HCPCS: 19371 ×2

== ENCOUNTER 2024-06-13 13:46 | Outpatient (NON) | payer OTHER, SELFPAY | END 2024-06-13 13:47 | disposition home or self-care (01) | LOC: ANHLAB 13:48 | PROVIDERS: PCP Student in an Organized Health Care Education/Training Program; Visit Provider Plastic Surgery | DX: T85.49XA Other mechanical complication of breast prosthesis and implant, initial encounter (principal); Y83.8 Other surgical procedures as the cause of abnormal reaction of the patient, or of later complication, without mention of misadventure at the time of the procedure | CPT/HCPCS: 88304 ==

== ENCOUNTER 2025-04-10 13:31 | Outpatient (CLI) | payer OTHER, SELFPAY ==
--- NOTE | 2025-04-10 | ECHO_ITS ---
Patient Info Name: Nahomi Lyles Age: 84 years : 1940 Gender: Female Ht: 66 in Wt: 132 lbs BSA: 1.67 m2 HR: 59 bpm BP: 191 / 81 mmHg Heart Rhythm: Sinus Rhythm Technical Quality: Good Exam Date: 04/10/2025 2:05 PM Patient Status: O Admit Date: 04/10/2025 Exam Type: CA echo doppler color flow Complete two-dimensional, color flow and Doppler transthoracic echocardiogram is performed. Certified Vehicle Fire Investigator: Maria T Alonso Attending Provider: Yue العراقي Summary 1. Complete two-dimensional, color flow and Doppler transthoracic echocardiogram is performed. 2. Left ventricular chamber dimension is mildly enlarged. 3. Left ventricular systolic function is normal, estimated at 55-60. 4. There is mildly increased left ventricular wall thickness. 5. The left ventricular diastolic function is grade I diastolic dysfunction. 6. Left atrial chamber dimension is mildly enlarged. 7. There is moderate aortic valve sclerosis. 8. There is moderate aortic valve regurgitation. 9. There is mild mitral valve regurgitation. 10. There is mild tricuspid valve regurgitation. 11. There is mild pulmonic regurgitation. 12. The prox ascending aorta size is mildly dilated. Left Ventricle Left ventricular chamber dimension is mildly enlarged. Left ventricular systolic function is normal, estimated at 55-60. There is mildly increased left ventricular wall thickness. The left ventricular diastolic function is grade I diastolic dysfunction. Right Ventricle Right ventricular chamber dimension is normal. Right ventricular systolic function is normal. Left Atria Left atrial chamber dimension is mildly enlarged. Atrial Septum Intact interatrial septum visualized by color flow imaging. Aortic Valve The aortic valve is trileaflet. There is moderate aortic valve sclerosis. There is no aortic valve stenosis. There is moderate aortic valve regurgitation. Pulmonic Valve The pulmonic valve is normal. There is no pulmonic valve stenosis. There is mild pulmonic regurgitation. Mitral Valve The mitral valve has a calcified annulus. There is no mitral valve stenosis. There is mild mitral valve regurgitation. Tricuspid Valve The tricuspid valve leaflets are normal. There is no significant tricuspid valve stenosis. There is mild tricuspid valve regurgitation. No pulmonary hypertension, estimated pulmonary arterial systolic pressure is 31 mmHg. Pericardium/Pleural The pericardium appears normal. There is no pericardial effusion. Inferior Vena Cava Normal inferior vena cava with >50% collapse upon inspiration consistent with normal right atrial pressure, 10 mmHg. Aorta The aortic root size at the sinus of Valsalva is normal. The prox ascending aorta size is mildly dilated. There is mild aortic atherosclerosis. Left Ventricular Outflow Tract Name Value Normal LVOT 2D LVOT Diameter 1.7 cm LVOT Doppler LVOT Peak Velocity 113 cm/s LVOT Peak Gradient 5 mmHg LVOT Mean Gradient 3 mmHg LVOT VTI 28 cm LVOT VTI/AV VTI Ratio 0.5 LVOT Stroke Volume 66 ml LVOT CO 12.2 l/min LVOT CI 7.3 l/min/m2 Pulmonic Valve Name Value Normal PV Doppler PV Peak Velocity 73 cm/s PV Peak Gradient 2 mmHg Mitral Valve Name Value Normal MV Diastolic Function MV E Peak Velocity 56 cm/s MV A Peak Velocity 79 cm/s MV E/A 0.7 MV Decel Time (PW) 278 ms MV Annular TDI MV E/e' (Septal) 18.1 MV E/e' (Lateral) 14.0 MV E/e' (Average) 16.0 Tricuspid Valve Name Value Normal TV Regurgitation Doppler TR Peak Velocity 227 cm/s TR Peak Gradient 21 mmHg Estimated PAP/RSVP RA Pressure 10 mmHg <=5 PA Systolic Pressure 31 mmHg <36 RV Systolic Pressure 31 mmHg <36 TV Annular TDI TV Lateral Heidi s' Velocity 9.2 cm/s >=9.5 Aorta Name Value Normal Ascending Aorta Ao Root Diameter (MM) 3.0 cm Ao Root Diam Index (MM) 1.8 cm/m2 Aortic Valve Name Value Normal AV Doppler AV Peak Velocity 248 cm/s AV Peak Gradient 25 mmHg AV Mean Gradient 12 mmHg AV VTI 53 cm AV Area (Cont Eq VTI) 1.2 cm2 >=3.0 AV Area (Cont Eq Reyes) 1.1 cm2 AV DI (Reyes) 0.45 AV Regurgitation 2D LVOT Area 2.4 cm2 Ventricles Name Value Normal LV Dimensions 2D/MM IVS Diastolic Thickness (2D) 1.2 cm 0.6-1.0 LVID Diastole (2D) 4.6 cm 3.8-5.2 LVIW Diastolic Thickness (2D) 1.0 cm 0.6-0.9 LVID Systole (2D) 3.2 cm 2.2-3.5 LVOT Diameter 1.7 cm LV Mass (2D Cubed) 172.52 g 67.00-162.00 LV Mass Index (2D Cubed) 103 g/m2 43-95 Relative Wall Thickness (2D) 0.43 <=0.42 LV Fractional Shortening/Ejection Fraction 2D/MM LV Fractional Shortening (2D) 30 % 27-45 LV EF (2D Teichholz) 57 % LV Diastolic Volume (4C MOD) 123 ml LV EF (4C MOD) 56 % LV Diastolic Volume (2C MOD) 112 ml LV EF (2C MOD) 64 % LV Diastolic Volume (BP MOD) 117 ml 46-106 LV Diastolic Volume Index (BP MOD) 70 ml/m2 29-61 LV Systolic Volume (BP MOD) 47 ml 14-42 LV Systolic Volume Index (BP MOD) 28 ml/m2 8-24 LV EF (BP MOD) 60 % 54-74 LV Diastolic Length (4C) 7.7 cm LV Systolic Length (4C) 6.2 cm LV Stroke Volume (4C MOD) 69 ml Atria Name Value Normal LA Dimensions LA Dimension (MM) 3.9 cm 2.7-3.8 LA Volume (4C A-L) 43 ml LA Volume (BP A-L) 50 ml RA Dimensions RA Area (4C) 17.9 cm2 <=18.0 Report Signatures
== END 2025-04-10 13:32 | disposition home or self-care (01) ==
PROVIDERS: PCP Nurse Practitioner; Visit Provider Nurse Practitioner
DX: I10 Essential (primary) hypertension (principal); I08.3 Combined rheumatic disorders of mitral, aortic and tricuspid valves
CPT/HCPCS: 93306